=== PATIENT | male | born 1950 | race Caucasian/White ===

== ENCOUNTER → 2022-12-11 | Outpatient (CLI) | payer MEDICARE, OTHER | END | disposition home or self-care (01) | LOC: RESCLI 10:53 | PROVIDERS: ATTEND Internal Medicine | DX: L40.9 Psoriasis, unspecified (principal); I48.0 Paroxysmal atrial fibrillation; G89.29 Other chronic pain; N40.0 Benign prostatic hyperplasia without lower urinary tract symptoms; I25.10 Atherosclerotic heart disease of native coronary artery without angina pectoris; E78.5 Hyperlipidemia, unspecified; E63.9 Nutritional deficiency, unspecified; Z98.890 Other specified postprocedural states; I25.2 Old myocardial infarction; Z79.899 Other long term (current) drug therapy ==